=== PATIENT | female | born 1995 | race Caucasian/White ===

== ENCOUNTER 2017-03-25 14:28 | Emergency (ER) | payer MEDICAID ==
[2017-03-25 14:42] VITALS: BP 133/83
[2017-03-25] MEDS ORDERED: Ondansetron 4 MG Tab.DIS PO ONE (14:52)
[2017-03-25] MEDS ORDERED: GI Cocktail Oral Solution 30 ML PO ONE (14:52)
--- NOTE | 2017-03-25 15:26 | EDM.PDOC ---
ED HPI GENERAL MEDICAL PROBLEM - General Chief Complaint: Gastrointestinal Problem Stated Complaint: ABDOMINAL PAIN Time Seen by Provider: 03/25/17 14:45 Source of Information: Reports: Patient History Limitations: Reports: No Limitations - History of Present Illness INITIAL COMMENTS - FREE TEXT/NARRATIVE: Patient has complaints of nausea and vomiting over the last 2 hours. States that including once while she has been here she has thrown up a total of 3 times. She states she has epigastric abdominal pain. Was seen in January for similar type symptoms and nothing acute was found during this appointment. She was to follow up with her primary doctor and she has not. No blood in her urine , stool, or emesis. No headache, chest pain, back pain. No UTI type symptoms. Onset: Today, Sudden Location: Reports: Abdomen Quality: Reports: Ache Severity: Mild Associated Symptoms: Reports: Nausea/Vomiting - Related Data Allergies Allergy/AdvReac Type Severity Reaction Status Date / Time ibuprofen Allergy Hives Verified 03/25/17 14:44 sumatriptan [From Imitrex] Allergy Muscle Verified 03/25/17 14:44 Aches sumatriptan succinate Allergy Muscle Verified 03/25/17 14:44 [From Imitrex] Aches nuts Allergy Hives Uncoded 04/01/14 19:14 Home Meds: Home Meds . [No Known Home Meds] 01/15/17 [History] Past Medical History - Past Health History Medical/Surgical History: Denies Medical/Surgical History [employer] History: Reports: Neurological History: Reports: Migraines - Past Surgical History Female Surgical History: Reports: Section Social & Family History - Tobacco Use Smoking Status *Q: Never Smoker Second Hand Smoke Exposure: Yes - Alcohol Use Days Per Week of Alcohol Use: 0 - Recreational Drug Use Recreational Drug Use: No ED ROS GENERAL - Review of Systems Review Of Systems: See Below Constitutional: Reports: No Symptoms HEENT: Reports: No Symptoms Respiratory: Reports: No Symptoms Cardiovascular: Reports: No Symptoms Endocrine: Reports: No Symptoms GI/Abdominal: Reports: Abdominal Pain, Diarrhea, Nausea, Vomiting : Reports: No Symptoms Musculoskeletal: Reports: No Symptoms Skin: Reports: No Symptoms Neurological: Reports: No Symptoms Psychiatric: Reports: No Symptoms Hematologic/Lymphatic: Reports: No Symptoms Immunologic: Reports: No Symptoms ED EXAM, GI/ABD - Physical Exam Exam: See Below Exam Limited By: No Limitations General Appearance: Alert, WD/WN, No Apparent Distress Nose: Normal Inspection, Normal Mucosa, No Blood Throat/Mouth: Other (posterior oropharynx edematous, swelling of uvula and tonsils, tonsils 3+) Head: Atraumatic, Normocephalic Neck: Lymphadenopathy (L) Respiratory/Chest: No Respiratory Distress, Lungs Clear, Normal Breath Sounds, No Accessory Muscle Use, Chest Non-Tender Cardiovascular: Normal Peripheral Pulses, Regular Rate, Rhythm, No Edema, No Gallop, No JVD, No Murmur, No Rub GI/Abdominal Exam: Normal Bowel Sounds, Soft, Non-Tender, No Organomegaly, No Distention, No Abnormal Bruit, No Mass, Pelvis Stable Back Exam: Normal Inspection, Full Range of Motion, NT Extremities: Normal Inspection, Normal Range of Motion, Non-Tender, Normal Capillary Refill, No Pedal Edema Neurological: Alert, Oriented, CN II-XII Intact, Normal Cognition, Normal Gait, Normal Reflexes, No Motor/Sensory Deficits Psychiatric: Normal Affect, Normal Mood Skin Exam: Warm, Dry, Intact, Normal Color, No Rash Lymphatic: Adenopathy (left cervical lymph nodes) EKG INTERPRETATION EKG Date: 03/25/17 Time: 15:23 Rhythm: Other (normal sinus with sinus arrhythmia) Crum: Normal P-Wave: Present QRS: Normal ST-T: Normal QT: Normal Comparison: No Change Course - Vital Signs Last Recorded V/S: Last Vital Signs Temp 35.7 C 03/25/17 14:35 Pulse 99 03/25/17 14:35 Resp 20 03/25/17 14:35 BP 133/83 03/25/17 14:35 Pulse Ox 97 03/25/17 14:35 - Orders/Labs/Meds Orders: Active Orders 24 hr Category Date Time Status AMYLASE [CHEM] Stat Lab 03/25/17 14:52 Ordered C-REACTIVE PROTEIN [CHEM] Stat Lab 03/25/17 14:52 Ordered CBC WITH AUTO DIFF [HEME] Stat Lab 03/25/17 14:52 Ordered CMP [COMPREHENSIVE METABOLIC PN,CMP] [CHEM] Stat Lab 03/25/17 14:52 Ordered LIPASE [CHEM] Stat Lab 03/25/17 14:52 Ordered STREP SCRN A RAPID W CULT CONF [RM] Stat Lab 03/25/17 14:52 Uncollected Meds: Medications Discontinued Medications Generic Name Dose Route Start Last Admin Trade Name Carolyn PRN Reason Stop Dose Admin Al Hydroxide/Mg Hydroxide 30 ml 03/25/17 14:52 03/25/17 14:59 Gi Cocktail PO 03/25/17 14:53 30 ml ONETIME ONE Administration Ondansetron HCl 4 mg 03/25/17 14:52 03/25/17 15:00 Zofran Odt PO 03/25/17 14:53 4 mg ONETIME ONE Administration Departure - Departure Time of Disposition: 16:22 Disposition: Home, Self-Care 01 Condition: Good Clinical Impression: Gastroenteritis - Discharge Information Instructions: Viral Gastroenteritis, Adult, Ryah-lo-Ceyn, Abdominal Pain, Adult , [id number] Additional Instructions: Stay well hydrated. Call your primary and see her for any additional symptom management. All your tests were negative today. If you have any questions or concerns, please call at any time. - Problem List & Annotations (1) Gastroenteritis SNOMED Code(s): 37892330 Code(s): K52.9 - NONINFECTIVE GASTROENTERITIS AND COLITIS, UNSPECIFIED Status: Acute Priority: Low Current Visit: Yes - Problem List Review Problem List Initiated/Reviewed/Updated: Yes - My Orders Last 24 Hours: My Active Orders 03/25/17 14:52 AMYLASE [CHEM] Stat C-REACTIVE PROTEIN [CHEM] Stat CBC WITH AUTO DIFF [HEME] Stat CMP [COMPREHENSIVE METABOLIC PN,CMP] [CHEM] Stat LIPASE [CHEM] Stat STREP SCRN A RAPID W CULT CONF [RM] Stat - Assessment/Plan Last 24 Hours: My Active Orders 03/25/17 14:52 AMYLASE [CHEM] Stat C-REACTIVE PROTEIN [CHEM] Stat CBC WITH AUTO DIFF [HEME] Stat CMP [COMPREHENSIVE METABOLIC PN,CMP] [CHEM] Stat LIPASE [CHEM] Stat STREP SCRN A RAPID W CULT CONF [RM] Stat Assessment:: viral gastroenteritis Plan: Stay well hydrated. Call your primary and see her for any additional symptom management. All your tests were negative today. If you have any questions or concerns, please call at any time.
[2017-03-25 15:36] LABS: CHLORIDE,CL 106 mmol/L (98-107); SODIUM,NA 145 mmol/L (136-145)
== END 2017-03-25 16:25 | disposition home or self-care (01) ==
LOC: VM.ED 14:28
DX: K52.9 Noninfective gastroenteritis and colitis, unspecified (principal); Z88.6 Allergy status to analgesic agent; Z91.018 Allergy to other foods; Z88.8 Allergy status to other drugs, medicaments and biological substances
CPT/HCPCS: 36415; 74019; 80053; 81001; 82150; 83690; 84484; 85025; 85610; 86140; 87081; 87880; 93005; 99284; A9270